=== PATIENT | female | born 2000 | race Hispanic/Latino ===

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

== ENCOUNTER 2022-01-07 14:31 | Observation (INO) | payer MEDICAID ==
[2022-01-07] MEDS ORDERED: LACTATED RINGERS 1000ML 1,000 ML IV SCH (15:00)
[2022-01-07 15:04] LABS: BASOPHILS % (AUTO) 0.4 % (0.0-5.0); EOSINOPHILS % (AUTO) 0.4 % (0.0-8.0); HEMATOCRIT 23.7 % (36-48); LYMPHOCYTES % (AUTO) 21.3 % (21.0-51.0); MEAN CORPUSCULAR HEMOGLOBIN 16.1 pg (27.0-33.0); MEAN CORPUSCULAR HGB CONC 26.2 g/dL (32.0-36.0); MEAN CORPUSCULAR VOLUME 61.7 fL (80-100); MONOCYTES % (AUTO) 5.6 % (3.0-13.0); NEUTROPHILS % (AUTO) 71.3 % (40.0-77.0); NUCLEATED RED BLOOD CELLS 0.2 % (0.0-0.19); PLATELET COUNT (AUTO) 245 K/uL (130-400); RED BLOOD CELL COUNT(AUTO) 3.84 MIL/uL (4.00-5.50); RED CELL DISTRIBUTION WIDTH 21.1 % (11.0-15.5); WHITE BLOOD COUNT (AUTO) 10.3 K/uL (4.8-10.8)
[2022-01-07 23:24] LABS: HEMATOCRIT 24.5 % (36-48); MEAN CORPUSCULAR HGB CONC 28.2 g/dL (32.0-36.0); MEAN CORPUSCULAR VOLUME 67.3 fL (80-100); NUCLEATED RED BLOOD CELLS 0.2 % (0.0-0.19); PLATELET COUNT (AUTO) 197 K/uL (130-400); RED BLOOD CELL COUNT(AUTO) 3.64 MIL/uL (4.00-5.50); RED CELL DISTRIBUTION WIDTH 26.1 % (11.0-15.5); WHITE BLOOD COUNT (AUTO) 9.2 K/uL (4.8-10.8)
[2022-01-08 00:13] LABS: LYMPHOCYTES % (MANUAL) 24 % (22-44); MAN.DIFF COMMENT-IMPRESSION MANUAL DIFFERENTIAL; MONOCYTES % (MANUAL) 1 % (2-9); SEGMENTED NEUTROPHILS % 75 % (40-70)
[2022-01-08 00:15] LABS: PLATELET MORPHOLOGY COMMENT ADEQUATE
[2022-01-17] MEDS ORDERED: FERS325 PO (19:43)
[2022-01-17] MEDS ORDERED: PNV11TAB5 PO (19:43)
== END 2022-01-07 23:25 | disposition home or self-care (01) ==
LOC: LDH 14:31
PROVIDERS: ADMIT Obstetrics & Gynecology; ATTEND Obstetrics & Gynecology
DX: O99.013 Anemia complicating pregnancy, third trimester (principal); D64.9 Anemia, unspecified; Z3A.36 36 weeks gestation of pregnancy
CPT/HCPCS: 36415; 36430; 76819; 85025 ×2; 86850; 86900; 86901; 86922; G0378 ×4; G0379; P9016 ×2

== ENCOUNTER 2023-02-25 10:07 | Emergency (ER) | payer MEDICAID ==
[~2023-02-25] VITALS: Ht 157.5 cm; Wt 44.9 kg
[~2023-02-25 10:07] MED LIST: FERS325 PO; PNV11TAB5 PO
[2023-02-25] MEDS ORDERED: 0.9%NACL 1000ML 1,000 ML IV ONE (10:30)
[2023-02-25 10:43] LABS: BASOPHILS % (AUTO) 0.5 % (0.0-5.0); EOSINOPHILS % (AUTO) 1.1 % (0.0-8.0); HEMATOCRIT 30.7 % (36-48); LYMPHOCYTES % (AUTO) 33.9 % (21.0-51.0); MEAN CORPUSCULAR HEMOGLOBIN 21.3 pg (27.0-33.0); MEAN CORPUSCULAR VOLUME 71.2 fL (79-99); MONOCYTES % (AUTO) 9.1 % (3.0-13.0); NEUTROPHILS % (AUTO) 55.2 % (40.0-77.0); PLATELET COUNT (AUTO) 197 K/uL (130-400); RED BLOOD CELL COUNT(AUTO) 4.31 MIL/uL (4.00-5.50); RED CELL DISTRIBUTION WIDTH 17.1 % (11.0-15.5); WHITE BLOOD COUNT (AUTO) 5.6 K/uL (4.8-10.8)
[2023-02-25 10:55] LABS: CREATININE 0.5 mg/dL (0.5-1.5); POTASSIUM 4.1 mmol/L (3.5-5.1)
[2023-02-25 11:21] LABS: ALBUMIN 3.8 g/dL (3.5-5.0)
[2023-02-25] MEDS ORDERED: ACET-66 PO (12:01)
[2023-02-25 12:18] VITALS: BP 105/74
== END 2023-02-25 12:17 | disposition home or self-care (01) ==
LOC: EDH 10:07
DX: O20.0 Threatened abortion (principal); Z3A.01 Less than 8 weeks gestation of pregnancy; Z90.49 Acquired absence of other specified parts of digestive tract
CPT/HCPCS: 36415; 76801; 80053; 81025; 84702; 85025

== ENCOUNTER 2023-03-04 18:16 | Observation (INO) | payer MEDICAID ==
[~2023-03-04] VITALS: Ht 157.5 cm; Wt 47.2 kg
[~2023-03-04 18:16] MED LIST changes: +ACET-66 PO
[2023-03-04 19:15] LABS: HEMATOCRIT 30.4 % (36-48); MEAN CORPUSCULAR HEMOGLOBIN 21.5 pg (27.0-33.0); MEAN CORPUSCULAR HGB CONC 30.3 g/dL (32.0-36.0); PLATELET COUNT (AUTO) 203 K/uL (130-400); RED BLOOD CELL COUNT(AUTO) 4.28 MIL/uL (4.00-5.50); RED CELL DISTRIBUTION WIDTH 16.8 % (11.0-15.5); WHITE BLOOD COUNT (AUTO) 7.1 K/uL (4.8-10.8)
[2023-03-04 19:55] LABS: ALBUMIN 3.9 g/dL (3.5-5.0); CREATININE 0.6 mg/dL (0.5-1.5); POTASSIUM 3.7 mmol/L (3.5-5.1); TOTAL PROTEIN, SERUM 7.2 g/dL (6.0-8.3)
[2023-03-04 21:35] LABS: HEMATOCRIT 27.8 % (36-48)
[2023-03-04] MEDS: LACTATED RINGERS 1000ML 1,000 ML IV SCH (22:00)
[2023-03-04 23:21] VITALS: BP 101/60
[2023-03-05] VITALS (7 sets, daily range): BP systolic 92–117; BP diastolic 44–67
[2023-03-05] MEDS: LACTATED RINGERS 1000ML 1,000 ML IV SCH ×2 (06:12→08:29)
[2023-03-05] MEDS ORDERED: CEFAZOLIN SODIUM 1 GM VIAL ONE (07:19)
[2023-03-05] MEDS ORDERED: GLYCOPYRROLATE 1 MG/5 ML SYRINGE ONE (07:25)
[2023-03-05] MEDS ORDERED: ROCURONIUM 10MG/1ML SYR 10 MG/ML ML ONE (07:25)
[2023-03-05] MEDS ORDERED: FENTANYL CITRATE PF 50 MCG/1 ML 2ML VIAL ONE (07:26)
[2023-03-05] MEDS ORDERED: PROPOFOL 10 MG/ML 20ML VIAL IV ONE (07:26)
[2023-03-05] MEDS ORDERED: OXYTOCIN 10 USP UNITS/ML ONE ×2 (07:51→07:53)
[2023-03-05] MEDS ORDERED: NEOSTIGMINE 5MG/5ML SYR IV ONE (07:55)
[2023-03-05] MEDS ORDERED: ONDANSETRON 4MG INJ ONE (08:05)
[2023-03-05] MEDS ORDERED: DiphenhydrAMINE HCL 50 MG/ML VIAL ONE (08:07)
== END 2023-03-05 14:35 | disposition home or self-care (01) ==
LOC: EDH 18:16 → INTOOBSV 18:17 → EDHIP 18:17 → WSH 23:11
PROVIDERS: ADMIT Obstetrics & Gynecology; ATTEND Obstetrics & Gynecology
DX: O03.4 Incomplete spontaneous abortion without complication (principal); Z20.822 Contact with and (suspected) exposure to COVID-19; O36.4XX0 Maternal care for intrauterine death, not applicable or unspecified; O46.91 Antepartum hemorrhage, unspecified, first trimester; R10.2 Pelvic and perineal pain; Z3A.01 Less than 8 weeks gestation of pregnancy; Z90.49 Acquired absence of other specified parts of digestive tract; Z79.899 Other long term (current) drug therapy; Z98.890 Other specified postprocedural states
CPT/HCPCS: 99284; 80053; 84702; 85027; 85014; 85018; 86850; 86900; 86901; 36415; 88305 ×2; 87635; 76801; 59812; G0378 ×4; A7002; A4649; J7030; A4351; J1200; J3010; J0690; J3490 ×2; J2710; J2590 ×2; J2405; J7120; J2704

== ENCOUNTER 2023-04-18 02:32 | Emergency (ER) | payer MEDICAID ==
[~2023-04-18] VITALS: Ht 160 cm; Wt 53.1 kg
[2023-04-18 02:50] VITALS: BP 120/72
[2023-04-18] MEDS ORDERED: 0.9%NACL 1000ML 1,000 ML IV ONE (03:00)
[2023-04-18] MEDS ORDERED: 0.9%NACL 1000ML 1,000 ML IV SCH (03:00)
[2023-04-18] MEDS ORDERED: KETOROLAC 30MG VIAL (30MG/ML) IVP ONE (03:00)
[2023-04-18 03:05] LABS: APPEARANCE,URINE CLOUDY (CLEAR); BILIRUBIN,URINE NEGATIVE (NEGATIVE); COLOR,URINE LIGHT-YELLOW (YELLOW); GLUCOSE, URINE (UA) NEGATIVE (NEGATIVE); KETONES,URINE 5 mg/dL (NEGATIVE); LEUKOCYTE ESTERASE ,URINE 25 Leu/uL (NEGATIVE); NITRATE,URINE NEGATIVE (NEGATIVE); OCCULT BLOOD,URINE NEGATIVE (NEGATIVE); PH,URINE 5.5 (5.0-8.0); PROTEIN,URINE 100 mg/dL (NEGATIVE); UROBILINOGEN,URINE 0.2 mg/dL (0.2-1.0)
[2023-04-18 03:07] LABS: HCG,QUALITATIVE URINE NEGATIVE (NEGATIVE)
[2023-04-18 03:10] LABS: BACTERIA,URINE RARE /HPF (None Seen); MUCUS,URINE RARE LPF (None Seen); OTHER CASTS, URINE 6 /LPF (None Seen); SQUAMOUS EPITHELIAL CELL,UR FEW /HPF (0-2)
[2023-04-18 03:12] LABS: AMPHET/METH SCREEN,URINE NEGATIVE (NEGATIVE); BARBITURATE SCREEN, URINE NEGATIVE (NEGATIVE); BENZODIAZEPINES SCREEN,URINE NEGATIVE (NEGATIVE); CANNABINOID SCREEN,URINE NEGATIVE (NEGATIVE); COCAINE SCREEN,URINE NEGATIVE (NEGATIVE); OPIATE SCREEN,URINE NEGATIVE (NEGATIVE); PHENCYCLIDINE SCREEN,URINE NEGATIVE (NEGATIVE)
[2023-04-18 03:21] LABS: BASOPHILS % (AUTO) 0.8 % (0.0-5.0); EOSINOPHILS % (AUTO) 0.8 % (0.0-8.0); HEMATOCRIT 26.8 % (36-48); LYMPHOCYTES % (AUTO) 54.3 % (21.0-51.0); MEAN CORPUSCULAR HEMOGLOBIN 19.4 pg (27.0-33.0); MEAN CORPUSCULAR HGB CONC 28.7 g/dL (32.0-36.0); MEAN CORPUSCULAR VOLUME 67.7 fL (79-99); MONOCYTES % (AUTO) 8.8 % (3.0-13.0); PLATELET COUNT (AUTO) 390 K/uL (130-400); RED BLOOD CELL COUNT(AUTO) 3.96 MIL/uL (4.00-5.50); RED CELL DISTRIBUTION WIDTH 16.5 % (11.0-15.5); WHITE BLOOD COUNT (AUTO) 11.8 K/uL (4.8-10.8)
[2023-04-18 03:33] LABS: CREATININE 0.9 mg/dL (0.5-1.5); POTASSIUM 3.3 mmol/L (3.5-5.1)
[2023-04-18 03:38] LABS: ALBUMIN 4.4 g/dL (3.5-5.0); TOTAL PROTEIN, SERUM 7.5 g/dL (6.0-8.3)
== END 2023-04-18 03:08 | disposition left against medical advice (07) ==
LOC: EDH 02:32
DX: S03.8XXA Sprain of joints and ligaments of other parts of head, initial encounter (principal); S40.212A Abrasion of left shoulder, initial encounter; S20.412A Abrasion of left back wall of thorax, initial encounter; Y99.8 Other external cause status; W13.8XXA Fall from, out of or through other building or structure, initial encounter; Y93.89 Activity, other specified; Y92.89 Other specified places as the place of occurrence of the external cause; Z90.49 Acquired absence of other specified parts of digestive tract
CPT/HCPCS: 99283; 96360; 80053; 80305; 85025; 87088; 81025; 36415; 81001; J7030

== ENCOUNTER 2024-11-29 08:47 | Emergency (ER) | payer SELFPAY ==
[~2024-11-29] VITALS: Ht 157.5 cm; Wt 54.4 kg
[2024-11-29 08:48] VITALS: BP 137/64; PULSE 102; RESP 18; TEMP 98.1; O2SAT 98
[2024-11-29] MEDS ORDERED: HC2530O TP (09:18)
--- NOTE | 2024-11-29 09:18 | ERN ---
General Chief Complaint: Skin Rash/Abscess Stated Complaint: SKIN PROBLEM Time Seen by MD: 08:57 History of Present Illness Initial Comments 24-year-old female no past medical history came in for rash on her face upper extremity with pruritus. Patient otherwise has no concerns. Allergies: Coded Allergies: No Allergy Information Available (Verified Allergy, Unknown, 01/07/22) No Known Drug Allergies (Unverified Allergy, Unknown, 01/17/22) NO KNOWN DRUG ALLERGIES Home Meds No Active Prescriptions or Reported Meds Past Medical History Past Medical History: No Pertinent History Past Surgical History: Appendectomy Social History Social History: Negative Female( History) : 7 Para: 4 Aborts: 2 ROS Dictation CONSTITUTIONAL: Negative except for HPI HEAD/FACE: Negative except for HPI EENT: Negative except for HPI RESPIRATORY: Negative except for HPI GASTROINTESTINAL/ABDOMINAL: Negative except for HPI GENITOURINARY: Negative except for HPI MUSCULOSKELETAL: Negative except for HPI INTEGUMENTARY: Negative except for HPI NEUROLOGICAL/PSYCH: Negative except for HPI HEMATOLOGIC/LYMPHATIC: Negative except for HPI All Systems Negative, Except as noted above. 13 point review of systems assessed and all negative except for above. Physical Exam Physical Exam Dictation Maculopapular rash on face and upper extremity MDM MDM: Differential diagnosis: There are no social concerns with this patient. Prescription drug management Prescriptions will include: Medical management and examination interpretation discussions were had by me with other qualified healthcare professionals as indicated for the patient's care. ED Course Vital Signs Date Time Temp Pulse Resp B/P (MAP) Pulse Ox O2 Delivery O2 Flow Rate FiO2 11/29/24 08:48 98.1 102 18 137/64 98 Room Air* 0 21 11/29/24 08:48 98.1 102 18 137/64 98 Room Air DX & DISP Disposition: Discharge Departure Impression: Primary Impression: Rash Condition: Stable Scripts Hydrocortisone (Hydrocortisone 2.5% Oint) 2.5 % Oint 1 APPL TP BID for 5 Days, #30 GM 0 Refills apply to affected area(s) Prov: DANICA POWELL MD 11/29/24 Referrals: ITALO PAT MD (PCP) DANICA POWELL MD Nov 29, 2024 09:18
== END 2024-11-29 10:42 | disposition home or self-care (01) ==
LOC: EDH 08:47
DX: R21 Rash and other nonspecific skin eruption (principal); Z90.49 Acquired absence of other specified parts of digestive tract
CPT/HCPCS: 99282

== ENCOUNTER 2024-12-23 18:36 | Emergency (ER) | payer SELFPAY ==
[~2024-12-23] VITALS: Ht 157.5 cm; Wt 53.5 kg
[~2024-12-23 18:36] MED LIST changes: -ACET-66 PO; -FERS325 PO; +HC2530O TP; -PNV11TAB5 PO
--- NOTE | 2024-12-23 18:59 | ERN ---
ED Note History of Present Illness Stated Complaint: SOB,COUGH Chief Complaint: Cough Time Seen by MD: 18:38 Time Seen by Midlevel: 18:38 Dictation: The patient is a 24-year-old female with no past medical history who presents to the emergency department with complaints of a productive cough, runny nose onset four days ago. Patient reports clear sputum. Denies any fevers. Allergies: Coded Allergies: No Allergy Information Available (Verified Allergy, Unknown, 01/07/22) No Known Drug Allergies (Unverified Allergy, Unknown, 01/17/22) NO KNOWN DRUG ALLERGIES Home Meds Active Scripts Hydrocortisone (Hydrocortisone 2.5% Oint) 2.5 % Oint, 1 APPL TP BID for 5 Days, #30 GM 0 Refills apply to affected area(s) Prov:DANICA POWELL MD 11/29/24 Past Medical History Past Medical History: No Pertinent History Surgical History: Appendectomy Social History: Negative LMP: Oct 01, 2024 : 7 Para: 4 Aborts: 2 RN Note Reviewed/Agreed w/PFSH: Yes Review of System Dictation Constitutional: Negative for fever,chills, and weight loss Eyes: Negative for injury, pain,redness, and discharge ENT: Negative for injury,pain or swelling Cardiovascular: Negative for chest pain, palpitations, and edema Respiratory: Negative for shortness of breath, and wheezing, positive for cough, Abdomen/GI: Negative for abdominal pain, nausea, vomiting, diarrhea, and constipation Back: Negative for injury and pain : Negative for injury, bleeding and discharge MS/Extremity: Negative for injury and deformity Skin: Negative for rash, and discoloration Neuro: Negative for headache, weakness, numbness, tingling, and seizure Psych: Negative for suicide ideation, homicidal ideation, and hallucinations Initial Vital Sign VS Vital Signs Date Time Temp Pulse Resp B/P (MAP) Pulse Ox O2 Delivery O2 Flow Rate FiO2 12/23/24 18:49 98.4 86 20 116/81 98 Room Air 12/23/24 19:15 0 21 Physical Exam Dictation Vital Signs reviewed General Appearance: Alert, oriented x 3, no acute distress, well developed, nourished. Head and Face: non-traumatic. Eyes: PERRL, pink conjunctivas, eyelid no trauma, anterior chamber with arcus senilis. Ears: Pinnas intact and no signs of trauma or erythema ear canals clear and no discharge TM no erythema Nose: No discharge, no bleeding. Oropharynx: Mouth normal, tongue pink. pharynx clear,no erythema, tonsils no exudates, no abscesses noted, mucous membrane moist Neck: Supple, non-tender, no thyromegaly, no masses, no JVD, no bruits Breast:Deferred Chest:No tenderness, no crepitus, no paradoxical movement, no retractions Lungs:Clear, well-ventilated, symmetric, no rales, no wheezing, no rhonchi, no stridor, good breath sounds bilaterally Heart: Regular rate, regular rhythm, no murmur, no gallops Vascular: no peripheral edema, Abdomen: Soft, positive bowel sounds, nondistended, no guarding, nontender, no rebound, no masses no hepatomegaly, no splenomegaly, no Murillo's sign, no hernias. Rectal: Deferred Genital: Deferred Neurological: Normal speech, motor function intact, sensory function intact Musculoskeletal: Neck nontender, full range of motion, back nontender, full range of motion, Extremities: nontender, full range of motion Skin: Color pink, dry, no turgor, no rash, no lacerations, no abrasions, no contusions. Lymphatic: Deferred Results (Laboratory/Radiology) Laboratory/Radiology Laboratory Tests Test 12/23/24 18:31 12/23/24 21:43 12/23/24 22:35 Influenza Type A Antigen Negative For Type A Influenza Type B Antigen Negative For Type B SARS-CoV-2, RNA, NAAT NEGATIVE SARS CoV-2 Group A Streptococcus Rapid negative (NEGATIVE) Urine Color YELLOW (YELLOW) Urine Appearance CLOUDY (CLEAR) H Urine pH 7.0 (5.0-8.0) Urine Specific [place] 1.038 (1.001-1.031) Urine Protein 30 mg/dL (NEGATIVE) H Urine Glucose (UA) NEGATIVE mg/dL (NEGATIVE) Urine Ketones NEGATIVE mg/dL (NEGATIVE) Urine Occult Blood NEGATIVE (NEGATIVE) Urine Nitrate NEGATIVE (NEGATIVE) Urine Bilirubin NEGATIVE mg/dL (NEGATIVE) Urine Urobilinogen 12 mg/dL (0.2-1.0) H Urine Leukocyte Esterase NEGATIVE Korin/uL Urine RBC 2-5 /HPF (0-1) H Urine WBC 2-5 /HPF (0-1) H Urine Squamous Epithelial Cells MOD /HPF (0-2) Urine Amorphous Crystals (Auto) RARE /LPF (None Seen) Urine Bacteria FEW /HPF (None Seen) Urine HCG, Qualitative POSITIVE (NEGATIVE) H White Blood Count 7.5 K/uL (4.8-10.8) Red Blood Count 4.36 MIL/uL (4.00-5.50) Hemoglobin 9.4 g/dL (12.0-16.0) L Hematocrit 31.1 % (36-48) L Mean Corpuscular Volume 71.3 fL (79-99) L Mean Corpuscular Hemoglobin 21.6 pg (27.0-33.0) L Mean Corpuscular Hemoglobin Concent 30.2 g/dL (32.0-36.0) L Red Cell Distribution Width 18.9 % (11.0-15.5) H Platelet Count 351 K/uL (130-400) Mean Platelet Volume 10.3 fL (7.5-10.5) Immature Granulocyte % (Auto) 0.4 % (0-1) Neutrophils (%) (Auto) 51.0 % (40.0-77.0) Lymphocytes (%) (Auto) 35.1 % (21.0-51.0) Monocytes (%) (Auto) 11.1 % (3.0-13.0) Eosinophils (%) (Auto) 2.0 % (0.0-8.0) Basophils (%) (Auto) 0.4 % (0.0-5.0) Neutrophils # (Auto) 3.8 K/uL (1.8-7.7) Lymphocytes # (Auto) 2.7 K/uL (1.0-4.8) Monocytes # (Auto) 0.8 K/uL (0.1-1.0) Eosinophils # (Auto) 0.15 K/uL (0.00-0.70) Basophils # (Auto) 0.03 K/uL (0.00-0.20) Absolute Immature Granulocyte (auto 0.03 K/uL (0-1) Nucleated Red Blood Cells 0.0 % (0.0-0.19) Red Blood Cell Morphology See comments Sodium Level 139 mmol/L (136-145) Potassium Level 4.2 mmol/L (3.5-5.1) Chloride Level 106 mmol/L (101-111) Carbon Dioxide Level 27 mmol/L (21-32) Blood Urea Nitrogen 9 mg/dL (7-18) Creatinine 0.5 mg/dL (0.5-1.0) Glomerular Filtration Rate Calc 134 mL/min (>90) Random Glucose 95 mg/dL (70-105) Total Calcium 8.3 mg/dL (8.5-10.1) L Human Chorionic Gonadotropin, Quant 98030 mIU/mL (0-5) H Labs Reviewed?: Yes ED Course ED Course Orders Procedure Category Date Status Time Covid Rna Naat LAB 12/23/24 Complete 18:52 Rapid (Group A Strep) LAB 12/23/24 Complete 18:52 Influenza Type A & B, LAB 12/23/24 Complete Rapid 18:52 ,Urine Test LAB 12/23/24 Complete 18:55 Guaifenesin-Codeine PHA 12/23/24 Complete Syrup 5ml (Robitussi 19:00 Cbc With Differential LAB 12/23/24 Complete 22:14 Hcg,Quantitative LAB 12/23/24 Complete 22:14 Us Ob <14 Weeks US 12/23/24 Taken 22:14 0.9%Nacl 1000ml (Ns PHA 12/23/24 Complete 1000ml) 22:30 Basic Metabolic Panel LAB 12/23/24 Complete 22:14 Urinalysis Profile LAB 12/23/24 Complete 22:14 Chest 1vw RAD 12/23/24 Taken 22:38 Current Medications Medications (Trade) Dose Ordered Sig/Sophia Route PRN Reason Start Time Stop Time Status Last Admin Dose Admin Guaifenesin/ Codeine Phosphate (RobiTUSSin AC 5 ML SYRUP) 10 ml ONCE ONCE PO 12/23/24 19:00 12/23/24 19:01 DC 12/23/24 21:08 Sodium Chloride 1,000 ml @ 0 mls/hr ONCE ONCE IV 12/23/24 22:30 12/23/24 22:31 DC 12/23/24 22:48 Vital Signs Date Time Temp Pulse Resp B/P (MAP) Pulse Ox O2 Delivery O2 Flow Rate FiO2 12/23/24 19:15 98.4 86 20 116/81 98 Room Air* 0 21 12/23/24 18:49 98.4 86 20 116/81 98 Room Air Medical Decision Making MDM The patient is a 24-year-old female with no past medical history who presents to the emergency department with complaints of a productive cough, runny nose onset four days ago. Patient reports clear sputum. Denies any fevers. CBC showed no leukocytosis, chemistry showed microcytic anemia, chemistry showed no electrolyte imbalance, hCG 32390, urinalysis unremarkable. Chest x-ray showed no acute pathology. I discussed risks and benefits with the patient about chest x-ray. Patient continues to want chest x-ray. Ultrasound revealed a six weeks six days intrauterine . heart rate 161. Echogenic mass noted to the right side that is been seen on previous ultrasounds. Patient in no acute distress. No abdominal pain or vaginal bleeding. Instructed to follow up with the OBGYN. Differential diagnosis: Pneumonia, pneumothorax, upper respiratory infection Need for hospitalization: Patient does not meet criteria for hospitalization. There are no social concerns with this patient. DX & DISP Disposition: Discharge Departure Impression: Primary Impression: Upper respiratory infection Additional Impressions: Anemia, 6 weeks gestation of Condition: Stable Additional Instructions: FOLLOW-UP WITH PRIMARY CARE PROVIDER IN 1 TO 2 DAYS. TAKE MEDICATIONS DIRECTED HERE IN THE EMERGENCY ROOM. OKAY TO CONTINUE HOME MEDICATIONS UNLESS OTHERWISE DISCUSSED DURING YOUR VISIT IN THE EMERGENCY ROOM TODAY. RETURN TO YOUR NEAREST EMERGENCY ROOM IF SYMPTOMS WORSEN OR IF THERE IS NO IMPROVEMENT. CALL 911 IF YOU NEED IMMEDIATE ASSISTANCE. TAKE TYLENOL [id number] NEEDED AND IF NO CONTRAINDICATIONS ARE PRESENT. INCREASE ORAL HYDRATION. A WOUND CULTURE OR URINE CULTURE WAS ORDERED HERE IN THE EMERGENCY ROOM DEPARTMENT PLEASE FOLLOW-UP WITH PRIMARY CARE PROVIDER AND ADVISE THEM TO GET REPEAT PORTS FROM OUR FACILITY. IF YOU HAD ANY BERNADETTE WRAP/SPLINTS THAT WERE APPLIED HERE, PLEASE DO NOT REMOVE THEM UNTIL YOU SEE YOUR PRIMARY CARE OR SPECIALTY. Referrals: ITALO PAT MD (PCP) Time of Disposition: 23:52 I have reviewed the case, and I agree with, Diagnosis and Plan ZULAY WALKER Dec 23, 2024 18:59
[2024-12-23 19:33] LABS: RAPID GROUP A STREP negative (NEGATIVE)
[2024-12-23 19:39] LABS: SARS-CoV-2, RNA, NAAT NEGATIVE SARS CoV-2 (NEGATIVE)
[2024-12-23 19:46] LABS: INFLUENZA TYPE A Negative For Type A (NEGATIVE); INFLUENZA TYPE B Negative For Type B (NEGATIVE)
[2024-12-23] MEDS: guaiFENesin-coDEINE 5 ML SYRUP PO ONE (21:08)
[2024-12-23] MEDS: 0.9%NACL 1000ML 1,000 ML IV ONE (22:48)
[2024-12-23 22:55] LABS: BASOPHILS # (AUTO) 0.03 K/uL (0.00-0.20); BASOPHILS % (AUTO) 0.4 % (0.0-5.0); EOSINOPHILS # (AUTO) 0.15 K/uL (0.00-0.70); HEMATOCRIT 31.1 % (36-48); IMMATURE GRANULOCYTE ABSOLUTE 0.03 K/uL (0-1); LYMPHOCYTES # (AUTO) 2.7 K/uL (1.0-4.8); LYMPHOCYTES % (AUTO) 35.1 % (21.0-51.0); MEAN CORPUSCULAR HEMOGLOBIN 21.6 pg (27.0-33.0); MEAN CORPUSCULAR HGB CONC 30.2 g/dL (32.0-36.0); MEAN CORPUSCULAR VOLUME 71.3 fL (79-99); MONOCYTES # (AUTO) 0.8 K/uL (0.1-1.0); MONOCYTES % (AUTO) 11.1 % (3.0-13.0); NEUTROPHILS # (AUTO) 3.8 K/uL (1.8-7.7); PLATELET COUNT (AUTO) 351 K/uL (130-400); RED BLOOD CELL COUNT(AUTO) 4.36 MIL/uL (4.00-5.50); RED CELL DISTRIBUTION WIDTH 18.9 % (11.0-15.5); WHITE BLOOD COUNT (AUTO) 7.5 K/uL (4.8-10.8)
[2024-12-23 23:05] LABS: CREATININE 0.5 mg/dL (0.5-1.0); POTASSIUM 4.2 mmol/L (3.5-5.1)
[2024-12-23 23:12] LABS: APPEARANCE,URINE CLOUDY (CLEAR); BILIRUBIN,URINE NEGATIVE (NEGATIVE); COLOR,URINE YELLOW (YELLOW); GLUCOSE, URINE (UA) NEGATIVE (NEGATIVE); KETONES,URINE NEGATIVE (NEGATIVE); LEUKOCYTE ESTERASE ,URINE NEGATIVE Leu/uL (NEGATIVE); NITRATE,URINE NEGATIVE (NEGATIVE); OCCULT BLOOD,URINE NEGATIVE (NEGATIVE); PROTEIN,URINE 30 mg/dL (NEGATIVE); UROBILINOGEN,URINE 12 mg/dL (0.2-1.0)
[2024-12-23 23:13] LABS: ADD UA MICROSCOPIC YES
[2024-12-23 23:14] LABS: BACTERIA,URINE FEW /HPF (None Seen); MUCUS,URINE MOD LPF (None Seen); SQUAMOUS EPITHELIAL CELL,UR MOD /HPF (0-2)
[2024-12-24 00:03] VITALS: BP 121/74; PULSE 82; RESP 20; TEMP 98.4; O2SAT 98
--- NOTE | 2024-12-24 08:29 | HMCIMG ---
Exam Type: US OB <14 WEEKS Clinical Information: VAGINAL BLEEDING Comparison: None FINDINGS: Single live intrauterine seen. No perigestational sac hematoma identified. CRL measures 0.72 cm , corresponds to 6 weeks 4 days. cardiac activity and heart rate is 161 beats per minute. The uterus is anteverted with normal shape. It measures 8.5 x 6.4 x 4.9 cm in its maximum length, anteroposterior and transverse dimensions. The myometrium is homogeneous and there is no evidence of focal or diffuse lesions. Normal left ovary. Benign appearing right dermoid. No adnexal masses. No free fluid or collections. Urinary bladder appears normal. IMPRESSION: 1. Single live intrauterine gestation 6 weeks 4 days.
--- NOTE | 2024-12-24 08:42 | HMCIMG ---
Exam Type: CHEST 1VW Clinical Information: cough Comparison: None Findings: The lungs are clear of infiltrates. The heart is normal in size. The bony and soft tissue structures of the chest are unremarkable. Impression: Clear lungs.
== END 2024-12-24 00:04 | disposition home or self-care (01) ==
LOC: EDH 18:36
DX: O99.511 Diseases of the respiratory system complicating pregnancy, first trimester (principal); J06.9 Acute upper respiratory infection, unspecified; O99.011 Anemia complicating pregnancy, first trimester; O26.891 Other specified pregnancy related conditions, first trimester; R10.2 Pelvic and perineal pain; Z3A.01 Less than 8 weeks gestation of pregnancy; Z90.49 Acquired absence of other specified parts of digestive tract; Z20.822 Contact with and (suspected) exposure to COVID-19
CPT/HCPCS: 99284; 76801; 71045; 87635; 80048; 84702; 85025; 87880; 87804 ×2; 81001; 81025; 36415; J7030